=== PATIENT | male | born 1975 | race Caucasian/White ===

== ENCOUNTER 2021-12-20 15:28 | Emergency (ER) | payer OTHER ==
[~2021-12-20] VITALS: Ht 175.3 cm; Wt 108.1 kg
[2021-12-20 16:21] VITALS: BP 119/69
[2021-12-20] MEDS ORDERED: CLINDAMYCIN 600 MG/4 ML VIAL IM ONE (16:55)
[2021-12-20] MEDS ORDERED: KETOROLAC 30 MG/ML VIAL IM ONE (16:55)
[2021-12-20] MEDS ORDERED: ACET-8386 PO (17:01)
[2021-12-20] MEDS ORDERED: IBUP-2213 PO (17:01)
[2021-12-20] MEDS ORDERED: AMOX-1230 PO (17:01)
--- NOTE | 2021-12-20 17:45 | NUR ---
PT AMBULATED TO RM 06.
--- NOTE | 2021-12-20 17:50 | NUR ---
46YO MALE PT C/O UPPER LEFT JAW PAIN AND N/V/D. PT STATES HAVING N/V/D AND ACHING 10/10 GUM PAIN X4 DAYS . PT DENIES BLOOD IN STOOL OR DIARRHEA. PT STATES TAKING TYLENOL WITH NO RELIEF . PT HAS PAIN AT MOST ON MOVEMENT OF MOUTH. PT UPPER L GUM PRESENTS WITH CANKER SORE. PT DENIES CHEST PAIN , SOB OR FEVERS. PT AAOX4, VITALS WITHIN NORMAL RANGE. ALL NEEDS MET AT THIS TIME NKA WAX
--- NOTE | 2021-12-20 18:34 | NUR ---
Patient discharged with v/s stable. Written and verbal after care instructions FOR DENTAL ABCESS given and explained. Patient alert, oriented and verbalized understanding of instructions. Ambulatory with steady gait. All questions addressed prior to discharge. ID band removed. Patient advised to follow up with PMD. Rx of HYDROCODONE, AMOXICILLIN, IBUPROFEN given. Opportunity to ask questions provided and answered.
[2021-12-20 18:35] VITALS: BP 134/75
--- NOTE | 2021-12-20 18:35 | NUR ---
The patient's care was reviewed and supervised by Shruthi Turner RN.
== END 2021-12-20 18:34 | disposition home or self-care (01) ==
LOC: MED 15:28
DX: K04.7 Periapical abscess without sinus (principal); R11.0 Nausea; Z79.899 Other long term (current) drug therapy
CPT/HCPCS: 96372; 99284; J1885; J3490

== ENCOUNTER 2023-04-01 19:56 | Emergency (ER) | payer OTHER ==
[~2023-04-01] VITALS: Ht 175.3 cm; Wt 107.0 kg
[~2023-04-01 19:56] MED LIST: ACET-8905 PO; AMOX-1230 PO; IBUP-2213 PO
[2023-04-01 20:42] VITALS: BP 108/63; PULSE 112; RESP 20; TEMP 97.8; O2SAT 98
[2023-04-02] MEDS ORDERED: ACETAMINOPHEN 325 MG TAB PO ONE (00:20)
[2023-04-02] MEDS ORDERED: ONDANSETRON 4 MG TAB PO ONE (00:20)
[2023-04-02] MEDS ORDERED: DICYCLOMINE HCL LIQUID 20 MG, ALUMINUM HYD/MAG/SIMETHICONE 30 ML, LIDOCAINE VISCOUS 2% ... PO ONE ×3 (00:20)
[2023-04-02 00:23] LABS: BASOPHILS % (AUTO) 0.1 % (0.0-2.0); HEMATOCRIT 48.8 % (36-52); HEMOGLOBIN 16.4 g/dL (12.0-18.0); LYMPHOCYTES # (AUTO) 0.5 K/uL (2.0-11.5); LYMPHOCYTES % (AUTO) 2.6 % (20.5-51.1); MEAN CORPUSCULAR HEMOGLOBIN 31 pg (27-31); MEAN CORPUSCULAR HGB CONC 34 g/dL (33-37); MEAN CORPUSCULAR VOLUME 92.8 fL (80-94); MONOCYTES # (AUTO) 0.7 K/uL (0.8-1.0); MONOCYTES % (AUTO) 3.9 % (1.7-9.3); NEUTROPHILS # (AUTO) 17.6 K/uL (1.8-7.7); NEUTROPHILS % (AUTO) 93.4 % (42.2-75.2); PLATELET COUNT (AUTO) 312 K/uL (140-450); RED BLOOD CELL COUNT(AUTO) 5.26 MIL/uL (4.20-6.10); RED CELL DISTRIBUTION WIDTH 12.8 % (11.6-13.7); WHITE BLOOD COUNT (AUTO) 18.9 K/uL (4.8-10.8)
[2023-04-02] MEDS ORDERED: DICYCLOMINE HCL LIQUID 10 MG/5 ML UDC ONE (00:32)
[2023-04-02] MEDS ORDERED: ALUMINUM HYD/MAG/SIMETHICONE 30 ML UDC ONE (00:32)
[2023-04-02 00:35] LABS: APPEARANCE,URINE CLEAR (CLEAR); BILIRUBIN,URINE 1+ (NEGATIVE); BLOOD, URINE NEGATIVE (NEGATIVE); COLOR,URINE YELLOW (YELLOW); LEUKOCYTE ESTERASE ,URINE TRACE (NEGATIVE); NITRITE, URINE NEGATIVE (NEGATIVE); PROTEIN,URINE 2+ (NEGATIVE); UGLUCOSE NEGATIVE (NEGATIVE); UROBILINOGEN,URINE 0.2 EU/dL (0.2 - 1)
[2023-04-02] MEDS ORDERED: NACL 0.9% 1,000 ML IV ONE (00:35)
[2023-04-02 00:39] LABS: BACTERIA,URINE 10-30 (MOD) /HPF (None Seen); ICTOTEST POSITIVE (NEGATIVE); MUCUS,URINE 1+ /LPF (None Seen); RBC,URINE 0-5 /HPF (0-5); SQUAMOUS EPITHELIAL CELL,UR 0-3 (FEW) /LPF (0-3 (FEW))
[2023-04-02 00:44] LABS: ANION GAP 20.8 (8-16); CALCIUM 9.1 mg/dL (8.5-10.1); CREATININE 1.4 mg/dL (0.6-1.3); POTASSIUM 3.8 mmol/L (3.5-5.1); TOTAL BILIRUBIN 0.7 mg/dL (0.0-1.0)
[2023-04-02 01:22] LABS: LACTIC ACID 4.3 mmol/L (0.4-2.0)
[2023-04-02] MEDS ORDERED: NACL 0.9% 2,500 ML IV ONE (01:45)
[2023-04-02] MEDS ORDERED: cefTRIAXone 1,000 MG VIAL ONE (02:08)
[2023-04-02] MEDS ORDERED: CEPH-588 PO (03:44)
== END 2023-04-02 03:45 | disposition left against medical advice (07) ==
LOC: MED 19:56
DX: N39.0 Urinary tract infection, site not specified (principal); R51.9 Headache, unspecified; R10.9 Unspecified abdominal pain; R74.02 Elevation of levels of lactic acid dehydrogenase [LDH]; D72.829 Elevated white blood cell count, unspecified; Z79.899 Other long term (current) drug therapy
CPT/HCPCS: 36415; 74176; 80053; 81001; 83605; 83690; 85025; 87040; 87086; 96361; 96365; 99291; J0696; J7030; Q0162; 99285